=== PATIENT | male | born 1995 | race Hispanic/Latino ===

== ENCOUNTER 2021-11-06 07:04 | Inpatient (IN) | payer BC ==
[2021-11-02 15:51] LABS: BASOPHILS # (AUTO) 0.1 (0.0-0.1); BASOPHILS % 0.6 % (0.0-1.0); EOSINOPHILS # (AUTO) 0.3 (0.0-0.4); EOSINOPHILS % 2.7 % (0.0-6.0); HEMATOCRIT 42.6 % (38.2-49.6); HEMOGLOBIN 14.8 g/dL (14.0-18.0); LYMPHOCYTES # (AUTO) 2.5 (1.0-3.2); LYMPHOCYTES % 26.9 % (18.0-39.1); MEAN CORPUSCULAR HEMOGLOBIN 28.7 pg (28-32); MEAN CORPUSCULAR HGB CONC 34.7 g/dL (31-35); MEAN CORPUSCULAR VOLUME 82.7 fL (81-99); MONOCYTES # (AUTO) 0.8 (0.2-0.8); MONOCYTES % 8.6 % (4.4-11.3); NEUTROPHILS # (AUTO) 5.7 (2.1-6.9); NEUTROPHILS % 60.5 % (38.7-80.0); PLATELET COUNT 362 x10e3/uL (140-360); RED BLOOD COUNT 5.15 x10e6/uL (4.3-5.7); RED CELL DISTRIBUTION WIDTH 12.1 % (11.7-14.4)
[2021-11-02 16:07] LABS: ANION GAP 17.3 mmol/L (8-16); CALCIUM 9.4 mg/dL (8.4-10.2); CREATININE, SERUM 0.83 mg/dL (0.72-1.25); POTASSIUM 4.3 mmol/L (3.5-5.1)
[~2021-11-06] VITALS: Ht 177.8 cm; Wt 167.8 kg
[~2021-11-06 07:04] MED LIST: VALSARTAN-HCTZ1 EAC1 PO
[2021-11-06] MEDS ORDERED: HYDROCODONE/APAP 7.5MG-325MG 1 EA TAB PO PRN (08:15)
[2021-11-06] MEDS ORDERED: ONDANSETRON HCL INJ 2MG/ML 2ML 2 MG/ML VIAL IV PRN (08:15)
[2021-11-06] MEDS ORDERED: BUPIVACAINE HCL 0.25% 10ML MPF VIAL INJ ONE (08:57)
[2021-11-06] MEDS ORDERED: FENTANYL CITRATE/PF 100MCG/2 ML INJ ONE (10:23)
[2021-11-06] MEDS ORDERED: HYDROMORPHONE 1MG/1ML INJ ONE (10:51)
[2021-11-06] MEDS ORDERED: SCOPOLAMINE 1 MG PATCH TOP SCH ×2 (11:00→12:30)
[2021-11-06 11:30] VITALS: BP 148/90
[2021-11-06 11:48] VITALS: BP 148/90
[2021-11-06] MEDS: Morphine 2mg Syringe 2 MG/ML SYR IV PRN ×2 (11:53→16:11)
[2021-11-06 12:01] VITALS: BP 148/90
[2021-11-06] MEDS ORDERED: DEXAMETHASONE SOD PHOS INJ 4 MG/ML SDV IV PRN (14:00)
[2021-11-06 15:57] VITALS: BP 164/88
[2021-11-06] MEDS: LACTATED RINGER'S 1,000 ML IV SCH ×2 (16:08→16:15)
[2021-11-06] MEDS ORDERED: SEVOFLURANE INHAL SOLN 250 ML PEN BTL ONE (17:04)
[2021-11-06] MEDS ORDERED: PROPOFOL IV EMULSION 10 MG/ML 20 ML VIAL ONE (17:04)
[2021-11-06] MEDS ORDERED: SUGAMMADEX SODIUM 200 MG/2 ML VIAL IV ONE (17:04)
[2021-11-06] MEDS ORDERED: LIDOCAINE HCL 2% LOCAL INJ 5 ML SDV VIAL INJ ONE (17:04)
[2021-11-06] MEDS ORDERED: EPHEDRINE SULFATE INJ 50 MG/ML VIAL ONE (17:04)
[2021-11-06] MEDS ORDERED: ROCURONIUM BROMIDE 10 MG/ML 5ML VIAL IV ONE (17:04)
[2021-11-06] MEDS ORDERED: ONDANSETRON HCL INJ 2MG/ML 2ML 2 MG/ML VIAL ONE (17:04)
[2021-11-06] MEDS ORDERED: POVIDONE IODINE 0.05% 0.05 % ML PO ONE (17:04)
[2021-11-06] MEDS ORDERED: GLYCOPYRROLATE INJ 0.2 MG/ML VIAL ONE (17:04)
[2021-11-06] MEDS ORDERED: DEXAMETHASONE SOD PHOS INJ 4 MG/ML SDV ONE (17:04)
[2021-11-06 20:11] VITALS: BP 169/108
[2021-11-06] MEDS: ENOXAPARIN SOD INJ 40 MG/0.4 ML SYR SC SCH (21:00)
[2021-11-07 00:39] VITALS: BP 141/88
[2021-11-07] MEDS: LACTATED RINGER'S 1,000 ML IV SCH ×2 (02:00→07:44)
[2021-11-07 04:00] VITALS: BP 135/71
[2021-11-07 05:14] LABS: BASOPHILS % 0.1 % (0.0-1.0); EOSINOPHILS % 0.1 % (0.0-6.0); HEMATOCRIT 40.4 % (38.2-49.6); HEMOGLOBIN 14.1 g/dL (14.0-18.0); LYMPHOCYTES # (AUTO) 1.4 (1.0-3.2); LYMPHOCYTES % 10.1 % (18.0-39.1); MEAN CORPUSCULAR HEMOGLOBIN 28.7 pg (28-32); MEAN CORPUSCULAR HGB CONC 34.9 g/dL (31-35); MEAN CORPUSCULAR VOLUME 82.3 fL (81-99); MONOCYTES # (AUTO) 1.2 (0.2-0.8); MONOCYTES % 8.6 % (4.4-11.3); NEUTROPHILS # (AUTO) 10.8 (2.1-6.9); NEUTROPHILS % 80.4 % (38.7-80.0); PLATELET COUNT 348 x10e3/uL (140-360); RED BLOOD COUNT 4.91 x10e6/uL (4.3-5.7); RED CELL DISTRIBUTION WIDTH 12.4 % (11.7-14.4)
[2021-11-07 05:31] LABS: ALBUMIN 4.1 g/dL (3.5-5.0); ALBUMIN/GLOBULIN RATIO 1.1 (0.8-2.0); CALCIUM 9.5 mg/dL (8.4-10.2); CREATININE, SERUM 0.77 mg/dL (0.72-1.25); MAGNESIUM 2.1 MG/DL (1.3-2.1); PHOSPHORUS 3.7 MG/DL (2.3-4.7)
[2021-11-07] MEDS: ENOXAPARIN SOD INJ 40 MG/0.4 ML SYR SC SCH (07:44)
[2021-11-07 08:00] VITALS: BP 141/81
[2021-11-07 08:05] VITALS: BP_SYST 141; BP_DIAS 100; BP_DIAS 81
[2021-11-09] MEDS ORDERED: SCOPOLAMINE 1 MG PATCH TOP SCH (11:30)
== END 2021-11-07 09:56 | disposition home or self-care (01) | DRG 621 ==
LOC: OR 07:04 → PACU V 09:57 → MED/SURG2 11:05
PROVIDERS: ADMIT Internal Medicine; ATTEND Internal Medicine
PROC: 0D164ZA Bypass Stomach to Jejunum, Percutaneous Endoscopic Approach (ICD-10-PCS; principal; 2021-11-06 07:52)
DX: E66.01 Morbid (severe) obesity due to excess calories (principal); Z68.43 Body mass index [BMI] 50.0-59.9, adult; I11.9 Hypertensive heart disease without heart failure; K21.9 Gastro-esophageal reflux disease without esophagitis; Z20.822 Contact with and (suspected) exposure to COVID-19; K76.0 Fatty (change of) liver, not elsewhere classified
CPT/HCPCS: 0223U; 36415; 80048; 80053; 83735; 84100; 85025; 93005; 94799; C1713; J0690; J1100; J1170; J1650; J2001; J2270; J2405; J3010; J7121